=== PATIENT | female | born 1965 | race Caucasian/White ===

== ENCOUNTER 2024-02-23 20:39 | Emergency (ER) | payer SELFPAY ==
[~2024-02-23] VITALS: Ht 157.5 cm; Wt 100.0 kg
[2024-02-23 20:48] VITALS: BP 137/67; PULSE 101; RESP 20; TEMP 99.8; O2SAT 94
== END 2024-02-24 00:10 | disposition left against medical advice (07) ==
LOC: ER 20:40
DX: R10.30 Lower abdominal pain, unspecified (principal); R50.9 Fever, unspecified; Z53.21 Procedure and treatment not carried out due to patient leaving prior to being seen by health care provider

== ENCOUNTER 2025-04-07 12:34 | Emergency (ER) | payer MEDICAID ==
[~2025-04-07] VITALS: Ht 157.5 cm; Wt 100.0 kg
[2025-04-07 12:37] VITALS: TEMP 98.3
--- NOTE | 2025-04-07 12:46 | Physician Documentation ---
History of Present Illness Chief Complaint: Post-operative complication Stated Complaint: FEVER HPI Patient is a 69-year-old female that presents to the emergency department for e valuation of concern for postop complication. Patient reports she woke up this morning with a fever of 105. Patient denies taking any antipyretics to assist in the reduction of the fever. Patient reports that she was just released from [facility] on the after having a nephrectomy secondary to renal cancer. Here in the emergency department. Patient's temperature is 98.3. All vital signs are appropriate at this time. Patient denies any other symptoms at this time. Medication Reconciliation Allergies: Coded Allergies: codeine (Verified Allergy, Unknown, 04/07/25) latex (Verified Allergy, Unknown, 04/07/25) Physical Exam Vital Signs: Temperature: 98.3, Source: Temporal, Heart Rate: 91, Respiratory Rate: 18, BP: 163/87, Pulse Oximetry: 97, Weight: 100.000 Progress Results/Orders Results/Orders Vital Signs 04/07/25 12:37 Temp 98.3 Pulse 91 Resp 18 B/P (MAP) 163/87 Pulse Ox 97 Medical Decision Making Additional information obtaine: other Findings Upon arrival to the ER patient was feeling a lot better. Physical examination is unremarkable and her abdominal examination as well as her recent surgical scar are fine. CBC, CMP and CXR and UA are all normal. Patient is reassured and the patient and I made a shared decision of letting her going home with aftercare and return instruction. Differential Dx:Considerations: Bowel obstruction, Constipation, Diverticular disease Departure Disposition: 01 HOME / SELF CARE / HOMELESS Impression: Primary Impression: Encounter for medical screening examination Condition: Stable Discharge Instructions: Medical Screening Exam Additional Instructions: Thank you for coming to our Emergency Department today. Push fluid. Return to the emergency room if you have a return of fever or chills and increased heart rate. Please ask your nurse or provider if you have questions about your care today and do not leave until all your questions have been answered. Please use any medications given as directed and follow-up with your doctor (or the doctor you were referred to) in the next 1-3 days. Your primary care doctor can help to coordinate outpatient specialty care and provide authorization for specialty referral as needed. If you do not have a primary care doctor you may follow up at a [facility]. You may also use motrin and tylenol as needed for fever and/or pain unless instructed otherwise by your provider or nurse. Indications for more urgent follow-up have been discussed, but you may return to the Emergency Department at ANY time for any worrisome or worsening symptoms. County Facilities: County Facilities: [facility]: Main [place] Address:[address] [place] [id number] [facility]: [place] Address:[facility] [place] [address] [facility]: Telemedicine Address:[address] [place] [address] [facility] Address:[address] [place] [address] Registration Billing Pharmacy Referrals [facility] Address:[address] [place] [address] Referrals: NO PRIMARY CARE PROVIDER (PCP) Education Educated: Patient, Family Educated regarding: diagnosis, treatment, need for follow up Signature Scribe Signature: x Attestation: YESENIA Carmona Apr 07, 2025 12:46 JUVENAL OSPINA MD Apr 07, 2025 16:00
[2025-04-07 13:11] LABS: LEUKOCYTE ESTERASE ,URINE NEGATIVE (Neg); NITRITES, URINE NEGATIVE (Neg); OCCULT BLOOD,URINE NEGATIVE (Neg)
--- NOTE | 2025-04-07 13:12 | RADIOLOGY REPORT ---
EXAM: DI CHEST,SINGLE VIEW CLINICAL HISTORY: poss sepsis TECHNIQUE: Single AP view of the chest WID: COMPARISON: None FINDINGS: Lines and tubes: None Chest: The heart size and pulmonary vasculature is within normal limits. Calcified plaque projects Over the aortic arch. No pleural effusion, pneumothorax, or consolidation. Linear scarring or atelectasis in the left lower lung. The osseous structures are grossly intact. Multilevel thoracic spondylosis. IMPRESSION: 1. No acute cardiopulmonary abnormality.
[2025-04-07 13:13] LABS: UA COLLECTION TYPE CLN CATCH MIDSTREAM
[2025-04-07 13:33] LABS: MEAN PLATELET VOLUME 9.2 FL (7.4-10.4); RED CELL DISTRIBUTION WIDTH 14.0 % (11.5-14.5)
[2025-04-07 13:55] LABS: CREATININE 1.04 MG/DL (0.40-0.90); TOTAL CARBON DIOXIDE 28.6 MMOL/L (24-32); eCRCL 47 ML/MIN; eGFR 54 ML/MIN
[2025-04-07 16:22] VITALS: BP 113/70; PULSE 84; RESP 16; O2SAT 95
== END 2025-04-07 16:25 | disposition home or self-care (01) ==
LOC: ER 12:35
DX: Z00.00 Encounter for general adult medical examination without abnormal findings (principal); Z88.5 Allergy status to narcotic agent; Z91.040 Latex allergy status
CPT/HCPCS: 36415; 71045; 80048; 81003; 83605; 84145; 85025; 87040; 99284